=== PATIENT | male | born 1990 | race Caucasian/White ===

== ENCOUNTER 2018-07-31 21:02 | Emergency (ER) | payer SELFPAY ==
--- NOTE | 2018-07-31 21:34 | ED Physician Chart ---
ED Chief Complaint/HPI - Patient Information Date Seen:: 07/31/18 Time Seen:: 21:27 Chief Complaint:: slip and fall back pain History of Present Illness:: 28 yr old male with slip and fall with back painno numbness or tingling Allergies:: Allergies Allergy/AdvReac Type Severity Reaction Status Date / Time No Known Allergies Allergy Verified 07/31/18 21:17 Vitals:: Vital Signs - 8 hr 07/31/18 21:05 Temp 98.6 F HR 86 RR 18 BP 138/103 O2 Sat % 99 ED Review of Systems - Review of Systems General/Constitutional: No fever, No chills, No weight loss, No weakness, No diaphoresis, No edema, No loss of appetite Skin: No skin lesions, No rash, No bruising Head: No headache, No light-headedness Eyes: No loss of vision, No pain, No diplopia ENT: No earache, No nasal drainage, No sore throat, No tinnitus Neck: No neck pain, No swelling, No thyromegaly, No stiffness, No mass noted Cardio Vascular: No chest pain, No palpitations, No PND, No orthopnea, No edema Pulmonary: No SOB, No cough, No sputum, No wheezing GI: No nausea, No vomiting, No diarrhea, No pain, No melena, No hematochezia, No constipation, No hematemesis G/U: No dysuria, No frequency, No hematuria Musculoskeletal: Bone or joint pain, Back pain, Muscle pain Endocrine: No polyuria, No polydipsia Psychiatric: No prior psych history, No depression, No anxiety, No suicidal ideation Hematopoietic: No bruising, No lymphadenopathy Allergic/Immuno: No urticaria, No angioedema Neurological: No syncope, No focal symptoms, No weakness, No paresthesia, No headache, No seizure, No dizziness, No confusion, No vertigo Family Medical History - Family Member Mother Living Status: Still Living ED Septic Shock - . Is Septic Shock (SBP<90, OR Lactate>4 mmol\L) present?: No - <6hrs of presentation: Vital Signs: Vital Signs - 8 hr 07/31/18 21:05 Temp 98.6 F HR 86 RR 18 BP 138/103 O2 Sat % 99
[2018-07-31 22:52] LABS: % BASOPHILS 0.5 % (0.0-2.0); % LYMPHOCYTES 20.8 % (20.0-50.0); % NEUTROPHILS 71.7 % (40.0-80.0); BASOPHILE ABSOLUTE 0.1 Th/cumm (0-0.2); EOSINOPHILE ABSOLUTE 0.1 Th/cmm (0.1-0.4); HEMATOCRIT 46.2 % (41.0-60); HEMOGLOBIN 15.5 gm/dL (12-16); LYMPHOCYTE ABSOLUTE 2.7 Th/cmm (1.5-3.0); MEAN CORPUSCULAR HEMOGLOBIN 27.8 pg (26.0-30.0); MEAN CORPUSCULAR HGB CONC 33.5 pg (28.0-36.0); MEAN PLATELET VOLUME 8.6 fl; MONOCYTE ABSOLUTE 0.8 Th/cmm (0.3-1.0); NEUTROPHILE ABSOLUTE 9.2 Th/cmm (1.8-8.0); PLATELET COUNT 261 Th/cmm (150-400); RED BLOOD COUNT 5.57 Mil/cmm (4.30-5.70); RED CELL DISTRIBUTION WIDTH 12.3 % (11.5-20.0); WHITE BLOOD COUNT 12.9 Th/cmm (4.8-10.8)
[2018-07-31 22:58] LABS: ALB/GLOB RATIO 1.5 (1.0-1.8); ALBUMIN 4.6 gm/dL (4.2-5.5); ALKALINE PHOSPHATASE 79 U/L (34-104); ANION GAP 13.3 (7.0-16.0); BILIRUBIN,TOTAL 0.8 mg/dL (0.3-1.0); BUN - UREA NITROGEN 9 mg/dL (7-25); CALCIUM SERUM 9.9 mg/dL (8.6-10.3); CARBON DIOXIDE 26.8 mEq/L (21.0-31.0); CHLORIDE 104 mEq/L (98-107); CREATININE - SERUM 0.8 mg/dL (0.7-1.3); GFR AFRICAN-AMERICAN > 60.0 ml/min (>90); GFR NON AFRICAN-AMERICAN > 60.0 ml/min; GLUCOSE 95 mg/dL (70-105); POTASSIUM SERUM 4.1 mEq/L (3.5-5.1); SGOT 19 U/L (13-39); SGPT/ALT 28 U/L (7-52); SODIUM SERUM 140 mEq/L (136-145); TOTAL PROTEIN,SERUM 7.7 gm/dL (6.0-8.3)
[2018-07-31 23:35] LABS: URINE SOURCE CLEAN C
[2018-07-31 23:37] LABS: URINE BILIRUBIN NEGATIVE (NEGATIVE); URINE BLOOD NEGATIVE (NEGATIVE); URINE GLUCOSE (UA) NEGATIVE (NEGATIVE); URINE KETONE NEGATIVE (NEGATIVE); URINE LEUKOCYTE ESTERASE NEGATIVE (NEGATIVE); URINE MICROSCOPIC INDICATED? YES; URINE NITRATE NEGATIVE (NEGATIVE); URINE PROTEIN TRACE mg/dL (NEGATIVE)
[2018-07-31 23:47] LABS: URINE CLARITY CLEAR (CLEAR); URINE COLOR STRAW; URINE RBC NONE SEEN /hpf (0-5)
[2018-07-31 23:48] LABS: URINE BACTERIA NONE SEEN /hpf (NONE SEEN); URINE EPITHELIAL CELLS OCCASIONAL /lpf (FEW); URINE WBC 0-2 /hpf (0-5)
--- NOTE | 2018-08-01 08:33 | Diagnostic Imaging Report ---
CT scan of the brain without contrast History: Trauma Total DLP equals 700 CTDI equals 40.0 Axial sections were obtained from the base of the skull to the vertex. There is a normal ventricular system size. No focal parenchymal lesions are seen. No evidence of any mass effect or shift of midline structures. No extra-axial masses or abnormal fluid collections. Impression: Negative examination
--- NOTE | 2018-08-01 08:34 | Diagnostic Imaging Report ---
Exam: CT examination of lumbar cervical spine HISTORY: Trauma Total DLP equals 1344 CTDI equals 5.7 Findings: Multiple contiguous thin section of the lumbar sacral spine were obtained axial plane with sagittal and coronal reconstruction technique. The study demonstrates no evidence of fracture dislocation or prevertebral soft tissue swelling. The neural canal is intact. IMPRESSION: Normal examination of lumbar sacral spine.
--- NOTE | 2018-08-01 08:36 | Diagnostic Imaging Report ---
Exam: CT examination cervical spine. HISTORY: Trauma Prior exams: None Total DLP equals 736 CTDI equals 37.5 Findings: Multiple contiguous thin section of the cervical spine were obtained in the plane with coronal and sagittal reconstruction technique. No prior studies available for comparison. The study demonstrates vertebral bodies of normal height with preserved ventricular disc spaces. There is no evidence of fracture dislocation subluxation. The neural canal is intact. IMPRESSION normal examination of the cervical spine. Findings:
== END 2018-07-31 23:25 | disposition home or self-care (01) ==
LOC: ER 21:02
DX: M54.9 Dorsalgia, unspecified (principal); W01.0XXA Fall on same level from slipping, tripping and stumbling without subsequent striking against object, initial encounter; Y93.89 Activity, other specified; Y92.89 Other specified places as the place of occurrence of the external cause; Y99.8 Other external cause status
CPT/HCPCS: 99284; 96372; 70450; 72125; 72131; 36415; 85025; 81001; 80053; 87040 ×2; 90715; J1885